=== PATIENT | male | born 1990 | race Asian ===

== ENCOUNTER 2023-06-26 09:01 | Emergency (ER) | payer BC, OTHER ==
[~2023-06-26] VITALS: Ht 175.3 cm; Wt 136.1 kg
[2023-06-26 09:03] VITALS: BP 163/96; PULSE 91; RESP 18
[2023-06-26 12:35] LABS: RAPID GROUP A STREP negative (NEGATIVE)
[2023-06-26 12:41] LABS: SARS-CoV-2, RNA, NAAT NEGATIVE SARS CoV-2 (NEGATIVE)
[2023-06-26 12:46] LABS: INFLUENZA TYPE A Negative For Type A (NEGATIVE); INFLUENZA TYPE B Negative For Type B (NEGATIVE)
[2023-06-26] MEDS ORDERED: IBUP-2070 PO (13:06)
[2023-06-26] MEDS ORDERED: METOCLOPRAMIDE 10 MG/2 ML VIAL IM ONE (13:30)
[2023-06-26] MEDS ORDERED: ACETAMINOPHEN 500 MG TABLET PO ONE (13:30)
== END 2023-06-26 13:49 | disposition home or self-care (01) ==
LOC: EDH 09:01
DX: G43.909 Migraine, unspecified, not intractable, without status migrainosus (principal); B34.9 Viral infection, unspecified; Z88.0 Allergy status to penicillin; Z20.822 Contact with and (suspected) exposure to COVID-19
CPT/HCPCS: 99285; 87635; 87880; 87804 ×2; 96372; C9803; J2765